=== PATIENT | female | born 1950 | race Caucasian/White ===

== ENCOUNTER → 2024-07-16 16:15 | Outpatient (REF) | payer MEDICARE, BC, SELFPAY | LOC: REG 16:15 | PROVIDERS: ATTENDING PHYSICIAN Nurse Practitioner Family; FAMILY PHYSICIAN Student in an Organized Health Care Education/Training Program | DX: Z78.9 Other specified health status (principal); M30.1 Polyarteritis with lung involvement [Churg-Strauss]; D72.18 Eosinophilia in diseases classified elsewhere | CPT/HCPCS: 36415 ==